=== PATIENT | female | born 1935 | race Caucasian/White ===

== ENCOUNTER → 2016-07-11 | Outpatient (REF) ==
[~2016-07-11] MED LIST: ASPIR-LOW81 MG PO; ASPIR-LOX325 MG PO; ASPIRIN 32325 MG/TAB PO; DYAZIDE 25 MG-31 CAP PO; FISH OIL CONC1000 MG PO; FLAXSEED OIL1000 MG PO; FOLIC ACID1 MG PO; HYDROCHLOR50 MG PO; MULTIPLE VITAMI1 TAB PO; MVI; NICOTINIC ACID PO; OCUVITE1 TA1 PO; OMEGA 31000 MG PO; OSCAL 500MG/VI500 MG PO; TRIAMTERENE/HCT1 CAP PO; VITAMIN B121000 MC2 SL; VITAMIN C500 MG PO
== END ==
LOC: ZLAB.WCH 15:23
DX: Z01.89 Encounter for other specified special examinations (principal)

== ENCOUNTER → 2017-07-09 | Outpatient (REF) | LOC: ZLAB.WCH 16:04 | DX: Z01.89 Encounter for other specified special examinations (principal) ==

== ENCOUNTER → 2018-07-15 | Outpatient (REF) | LOC: ZLAB.WCH 17:39 | DX: Z01.89 Encounter for other specified special examinations (principal) ==